=== PATIENT | female | born 1990 | race African-American/Black ===

== ENCOUNTER 2019-02-03 10:40 | Emergency (ER) | payer OTHER ==
[~2019-02-03] VITALS: Ht 167.6 cm; Wt 136.1 kg
[2019-02-03] MEDS ORDERED: NORCO 5-325 TA1 EACH PO (12:54)
[2019-02-03 13:26] VITALS: BP 163/108
== END 2019-02-03 13:25 | disposition home or self-care (01) ==
LOC: ER 10:40
DX: M79.671 Pain in right foot (principal)